=== PATIENT | male | born 1945 | race Caucasian/White ===

== ENCOUNTER → 2018-12-09 | Outpatient (CLI) | payer OTHER ==
[2018-12-09 07:59] LABS: HEMATOCRIT 41.9 % (42.0-52.0); HEMOGLOBIN 14.4 gm/dL (14.0-18.0); MCH 31.7 pg (26.0-34.0); MCHC 34.3 g/dL (28.0-37.0); MCV 92.6 fL (80.0-100.0); RBC 4.52 mil/uL (4.50-6.00); RDW 12.5 % (10.5-14.5); WBC 6.4 thou/uL (4.0-11.0)
[2018-12-09 08:12] LABS: ALBUMIN 4.1 g/dL (3.4-5.0); CREATININE 1.1 mg/dL (0.7-1.3); TOTAL BILIRUBIN 0.5 mg/dL (<0.1-1.0); TOTAL PROTEIN 7.1 g/dL (6.4-8.2)
== END ==
LOC: CAT 07:38
PROVIDERS: Internal Medicine Cardiovascular Disease
DX: I48.91 Unspecified atrial fibrillation (principal); I25.10 Atherosclerotic heart disease of native coronary artery without angina pectoris; R91.8 Other nonspecific abnormal finding of lung field; M47.814 Spondylosis without myelopathy or radiculopathy, thoracic region

== ENCOUNTER 2018-12-17 06:24 | Observation (INO) | payer OTHER ==
[2018-12-17] VITALS (11 sets, daily range): BP systolic 125–156; BP diastolic 69–99
[~2018-12-17] VITALS: Ht 185.4 cm; Wt 106.2 kg
[2018-12-17 07:14] LABS: ABSOLUTE NEUTROPHILS 3.3 thou/uL (1.4-8.2); BASOPHILS 0.6 % (0.0-2.0); EOSINOPHILS 2.9 % (0.0-3.0); HEMATOCRIT 41.3 % (42.0-52.0); HEMOGLOBIN 14.1 gm/dL (14.0-18.0); LYMPHOCYTES 36.9 % (24.0-44.0); MCH 31.9 pg (26.0-34.0); MCHC 34.1 g/dL (28.0-37.0); MCV 93.5 fL (80.0-100.0); MONOCYTES 8.1 % (1.0-8.0); PLATELET COUNT 222 thou/uL (150-400); POLYS 51.5 % (36.0-66.0); RBC 4.42 mil/uL (4.50-6.00); RDW 12.5 % (10.5-14.5); WBC 6.3 thou/uL (4.0-11.0)
[2018-12-17] MEDS ORDERED: LIPITOR10 MG PO (07:21)
[2018-12-17 07:22] LABS: CALCIUM 9.1 mg/dL (8.5-10.1); CREATININE 1.1 mg/dL (0.7-1.3); POTASSIUM 3.5 mmol/L (3.5-5.1)
[2018-12-17] MEDS ORDERED: OMEPRAZOLE40 MG PO (07:22)
[2018-12-17] MEDS ORDERED: TAMBOCOR 100 M100 M1 PO (07:22)
[2018-12-17] MEDS ORDERED: TOPROL XL25 MG PO (07:23)
[2018-12-17] MEDS ORDERED: GLUCOSAMINE &1 EACH PO (07:24)
[2018-12-17 07:25] LABS: PROTIME 10.4 Seconds (9.3-11.4)
[2018-12-17] MEDS ORDERED: ELIQUIS5 MG PO (07:28)
[2018-12-17 07:29] LABS: ALBUMIN 4.1 g/dL (3.4-5.0); TOTAL BILIRUBIN 0.7 mg/dL (<0.1-1.0); TOTAL PROTEIN 7.1 g/dL (6.4-8.2)
--- NOTE | 2018-12-17 18:51 | NUR ---
PT ADMITED FROM CARDIAC CATH. ADMISSION HX AND ASSESSMENT COMPLETED. VSS. RIGHT GROIN INCISION C/D/I. NO HEMATOMA NOTED. TILLEY D/C. PT HAS BEEN ABLE TO VOID. VSS. DENIED HAVING PAIN OR DISCOMFORT. WILL CONTINUE TO MONITOR.
[2018-12-18 00:25] VITALS: BP 129/81
--- NOTE | 2018-12-18 04:32 | NUR ---
ASSUMED PT CARE AT 1900. PT A/OX4, VITAL SIGNS STABLE, ASSESSMENT CHARTED. PT COMPLAINED OF SOME CHEST PAIN (NON-CARDIAC) WITH COUGHING. PAIN MEDICATION GIVEN WHICH SEEMED TO HELP. COUGH DROP GIVEN FOR SORE THROAT WELL. PT RESTED WELL FOR REST OF NIGHT. GROIN SITE CLEAN DRY AND INTACT.
[2018-12-18 05:37] VITALS: BP 132/77
[2018-12-18 07:50] VITALS: BP 144/82
--- NOTE | 2018-12-18 08:01 | P ---
[facility] [place] [address] PROCEDURE REPORT Name: CARLOTTA LICEA Room #: 209-P [facility].#: [id number] Admission: 12/17/18 ������������������ Attend Phys: Rizwan Quintanilla MD Discharge: ������������������ Date of : 49 Report #: [id number] THIS REPORT FOR: //name// CC: Rizwan Quintanilla Physician staff SHELLEY SLOAN PREOPERATIVE DIAGNOSIS: Atrial fibrillation. POSTOPERATIVE DIAGNOSIS: Atrial fibrillation and atrial flutter. HISTORY: The patient is with a history of AFib, who has failed antiarrhythmic drugs and is here for an ablation. PROCEDURES PERFORMED: 1. Atrial fibrillation ablation, CPT code 00979. 2. 3D mapping, CPT code 16365. 3. Intracardiac echo, CPT code 03061. 4. Second pathway ablation for atrial flutter, CPT code 96404. ANESTHESIA: The patient underwent general anesthesia with no anesthesia related complications. DESCRIPTION OF PROCEDURE: The patient underwent informed consent. We discussed the details of the procedure including the risks, which include, but not limited to bleeding, infection, vascular damage, cardiac perforation, stroke and [place]. He understood these risks and is willing to proceed. The patient was brought to the EP laboratory in fasting and sedated state, prepped and draped in a sterile fashion. I obtained access to the right femoral vein x 3, placing an 8, 9 and 7-Icelandic short sheath. Under fluoroscopy, I placed a decapolar catheter easily in the coronary sinus and an ice catheter into the right atrium. Using intracardiac ultrasound, I created a detailed 3D geometry of the left atrium with specific emphasis of the two left and two right pulmonary veins. Of note, his interatrial septum was pretty thick except for very anterior aspect. Next, the patient was systemically heparinized and a transseptal was performed using an SL1 sheath and a [place] needle. The first place I attempted to cross, the needle advanced nicely into the left atrium, but I could not advance the sheath. Therefore, I pulled the SL1 sheath slightly lower and then came on again with my needle and this time, I was able to advance the tip of the dilator into the left atrium and then advanced the wire into the left superior pulmonary vein; however, I could not advance the SL1 sheath into the left atrium, so I removed the SL1 sheath and advanced the cryo-sheath over the wire into the left superior pulmonary vein without any issues. At baseline, the patient was in sinus rhythm with a sinus rate of 1030 milliseconds, [place] interval 175 milliseconds, QRS duration 100 milliseconds, QT interval 430 milliseconds. Of note, while I was in the left atrium, the patient did go into [address] [address] PROCEDURE REPORT Name: CARLOTTA LICEA Room #: 209-P [facility] Jamie VelazquezRHetal#: [id number] Admission: 12/17/18 ������������������ Attend Phys: Rizwan Quintanilla MD Discharge: ������������������ Date of : 47 Report #: [id number] typical atrial flutter with an atrial cycle length of 250 milliseconds proximal and distal activation along the CS catheter and negative sawtooth flutter waves in the inferior leads. This eventually terminated on its own. Next, I placed a Biosense Cantor Lasso catheter in the left atrium and created a detailed voltage map of the left atrium. My transseptal was slightly high and very anterior. This made engagement of the left inferior pulmonary vein, somewhat challenging with the Lasso catheter, but I created a nice voltage map, nonetheless of the 4 veins in the left atrium. Next, I placed the cryoballoon into the left atrium. I started by isolating the left inferior pulmonary vein, first freeze was of 4 minutes' duration, did not result in isolation. Second freeze was performed and I came off after 30 seconds as the balloon was somewhat deep into the vessel. It appeared the vein was now isolated. I then turned my attention to the left superior pulmonary vein. I performed a single 4-minute freeze and this resulted in isolation of the left superior pulmonary vein within 24 seconds. I then turned my attention to the right-sided veins. While isolating the right-sided veins, I performed phrenic nerve pacing from the decapolar catheter placed up in the subclavian vessel. The right superior pulmonary vein underwent a single 4-minute freeze as the vein isolated within 57 seconds. The right inferior pulmonary vein underwent a single 4-minute freeze as this vein isolated within 34 seconds. I then re-interrogated the veins and they all appeared to be isolated. I decided to perform one additional freeze in the left inferior pulmonary vein of 4 minutes duration to ensure that this vein remains isolated. This freeze actually had better attempts and better occlusion based on venography. Next, I removed the cryoballoon from the left atrium and placed the Lasso catheter back and created a voltage map and we had created a wide circumferential ablation of the pulmonary veins. Next, I turned my attention to the patient's atrial flutter. I utilized a RAMP sheath and an 8 mm Biosense Cantor ablation catheter. I performed a total of 2 ablation lines at 70 garza and 60 degrees. Pre-ablation, the transisthmus conduction time was around 65 milliseconds. Post-ablation was 140 milliseconds with activation consistent with bidirectional block. As such, using intracardiac ultrasound, I verified there was no pericardial effusion. The patient then received systemic protamine and once the ACT was within acceptable range, catheters and sheaths were pulled and hemostasis was obtained. The patient awoke neurologically and hemodynamically intact. No complications and no significant bleeding. CONCLUSIONS: 1. Successful AFib ablation with isolation of the pulmonary veins. 2. Successful atrial flutter ablation with evidence of bidirectional block. ��������������������������������������������� <ELECTRONICALLY SIGNED> ���������������������������������������� By: Rizwan Quintanilla MD ��������������������������������������������� 12/18/18 0801 1117 0027 Rizwan Quintanilla MD /nt
[2018-12-18 08:39] VITALS: BP 144/82
--- NOTE | 2018-12-18 09:32 | NUR ---
PT CARE ASSUMED APPROX 0700. PT ALERT AND ORIENTED X4. DENIES PAIN AND SOA. VSS. UP WITH STEADY GAIT. RIGHT GROIN POST CATH SITE C/D/I. AT BEDSIDE. PT DISCHARGING HOME TO SELF CARE AT THIS TIME. DISCHARGE EDUCATION DONE WITH PT AND . BOTH DENY QUESTIONS AND CONCERNS REGARDING DISCHARGE, FORMS, INCISION CARE, F/U APPTS AND ALL OTHER GENERAL POST HOSPITAL CARE. ALL BELONGINGS IN PT POSSESSION. DRUG SAMPLES FOR ELIQUIS IN PT POSSESSION. IV OUT, TELE BOX OFF. HOSPITAL STAFF TO ESCORT PT OUT TIMELY.
== END 2018-12-18 09:38 | disposition home or self-care (01) ==
LOC: CATH → 2N 13:52 → ENTRNSPT 12-18 09:30 → EDTRNSPTSTS 12-18 09:32 → 2N 12-18 09:38
PROVIDERS: ADMIT Internal Medicine Cardiovascular Disease
DX: I48.91 Unspecified atrial fibrillation (principal); I48.92 Unspecified atrial flutter; I10 Essential (primary) hypertension; Z79.82 Long term (current) use of aspirin; Z87.891 Personal history of nicotine dependence
CPT/HCPCS: 65040; 70005

== ENCOUNTER → 2018-12-31 | Outpatient (CLI) | payer OTHER ==
[~2018-12-31] MED LIST: ELIQUIS5 MG PO; GLUCOSAMINE &1 EACH PO; LIPITOR10 MG PO; OMEPRAZOLE40 MG PO; TAMBOCOR 100 M100 M1 PO; TOPROL XL25 MG PO
--- NOTE | 2018-12-31 13:28 | 2DMMODE ---
[facility] Marek [employer] [address] 2 D/M-MODE ECHOCARDIOGRAM Name: CARLOTTA LICEA Room #: REG [facility]#: [id number] Admission: 12/31/18 Attend Phys: Margaux Camargo Discharge: Date of : 49 Report #: [id number] THIS REPORT FOR: //name// APPROVED REPORT Study performed: 12/31/2018 12:35:05 EXAM: Comprehensive 2D, Doppler, and color-flow Echocardiogram Patient Location: Out-Patient Status: routine BSA: 2.28 HR: 65 bpm BP: 132/78 mmHg Rhythm: NSR Other Information Study Quality: Good Indications Post Ablation, Rule out effusion 2D Dimensions IVSd: 12.45 (7-11mm) LVDd: 38.94 mm PWd: 11.87 (7-11mm) LVDs: 24.10 (25-40mm) Pulmonary Valve PV Peak Josias.: 0.81 m/s PV Peak Gr.: 2.65 mmHg Tricuspid Valve TR Peak Josias.: 2.52 m/s TR Peak Gr.: 25.43 mmHg Left Ventricle The left ventricle is normal size. Mild concentric left ventricular hypertrophy. The left ventricular systolic function is normal. The left ventricular ejection fraction is within the normal range. LVEF is 60-65%. Aortic Valve The aortic valve is normal in structure. No aortic regurgitation is present. [facility] [address] [place] [address] 2 D/M-MODE ECHOCARDIOGRAM Name: CARLOTTA LICEA Room #: REG [facility].#: [id number] Admission: 12/31/18 Attend Phys: Margaux Camargo Discharge: Date of : 47 Report #: [id number] Mitral Valve The mitral valve is normal in structure. Trace to mild mitral regurgitation. Tricuspid Valve The tricuspid valve is normal in structure. Mild tricuspid regurgitation. Estimated PAP is 30mmHg. Pulmonic Valve The pulmonary valve is normal in structure. Trace to mild pulmonic regurgitation. Great Vessels IVC is normal in size and collapses >50% with inspiration. Pericardium There is no pericardial effusion. There is no pleural effusion. <Conclusion> The left ventricle is normal size. LVEF is 60-65%. The aortic valve is normal in structure. The mitral valve is normal in structure. Trace to mild mitral regurgitation. The tricuspid valve is normal in structure. Mild tricuspid regurgitation. Estimated PAP is 30mmHg. The pulmonary valve is normal in structure. Trace to mild pulmonic regurgitation. There is no pericardial effusion. <ELECTRONICALLY SIGNED> By: Damien Gordillo MD 12/31/18 1328 1328 1328 Damien Gordillo MD /INF
== END ==
LOC: CV 12:28
DX: I08.8 Other rheumatic multiple valve diseases (principal); I30.9 Acute pericarditis, unspecified; I70.0 Atherosclerosis of aorta

== ENCOUNTER → 2019-07-01 | Outpatient (CLI) | payer OTHER | LOC: SJCVC 14:11 | DX: I48.0 Paroxysmal atrial fibrillation (principal); I10 Essential (primary) hypertension; Z79.899 Other long term (current) drug therapy; Z87.891 Personal history of nicotine dependence ==

== ENCOUNTER → 2019-09-29 | Outpatient (CLI) | payer OTHER | LOC: SJCVC 11:04 | PROVIDERS: ATTEND Internal Medicine Cardiovascular Disease | DX: I48.0 Paroxysmal atrial fibrillation (principal); R00.2 Palpitations; I25.9 Chronic ischemic heart disease, unspecified; Z87.891 Personal history of nicotine dependence; Z79.899 Other long term (current) drug therapy ==

== ENCOUNTER → 2019-10-06 | Outpatient (CLI) | payer OTHER ==
--- NOTE | ~2019-10-06 | P ---
[address] [place] [address] PROCEDURE REPORT Name: SPIKE LICEA Room #: REG [facility]#: [id number] Admission: 10/06/19 Attend Phys: Rizwan Quintanilla MD Discharge: Date of : 47 Report #: [id number] THIS REPORT FOR: cc: LORRIE DALE Luis F. MD ~ CC: Rizwan DALE PROCEDURE: Implantable loop recorder insertion on Mr. Spike Licea. PREOPERATIVE DIAGNOSES: 1. Atrial fibrillation. 2. Palpitations. POSTOPERATIVE DIAGNOSES: 1. Atrial fibrillation. 2. Palpitations. DESCRIPTION OF PROCEDURE: The patient underwent informed consent. He was prepped in a sterile fashion. I injected lidocaine at the incision site. The device was injected under the skin, single layer of suture was delivered and surgical glue was placed on the incision. There were no procedure related complications. New implanted device is MedThe Resumator LINQ, serial # [id number]. CONCLUSIONS: Successful implantation of an implantable loop recorder. By: [id number] [id number] Rizwan Quintanilla MD /nt
[2019-10-06 08:29] VITALS: BP 158/88
== END | disposition home or self-care (01) ==
LOC: CATH 07:10
PROVIDERS: ATTEND Internal Medicine Cardiovascular Disease
DX: I48.91 Unspecified atrial fibrillation (principal); R00.2 Palpitations; Z98.890 Other specified postprocedural states; Z79.899 Other long term (current) drug therapy; Z79.01 Long term (current) use of anticoagulants

== ENCOUNTER → 2019-10-08 | Outpatient (CLI) | payer OTHER | LOC: SJCVCIMAG 09:47 | PROVIDERS: ATTEND Internal Medicine Cardiovascular Disease | DX: R06.09 Other forms of dyspnea (principal); R42 Dizziness and giddiness; R51 Headache; I48.91 Unspecified atrial fibrillation; R06.02 Shortness of breath; Z87.891 Personal history of nicotine dependence; Z79.899 Other long term (current) drug therapy ==

== ENCOUNTER → 2019-12-03 | Outpatient (CLI) | payer OTHER | LOC: SJCVC 13:29 | PROVIDERS: ATTEND Internal Medicine Cardiovascular Disease | DX: I48.92 Unspecified atrial flutter (principal); I48.91 Unspecified atrial fibrillation; I10 Essential (primary) hypertension; Z79.899 Other long term (current) drug therapy; Z87.891 Personal history of nicotine dependence ==

== ENCOUNTER → 2020-01-12 | Outpatient (CLI) | payer OTHER ==
[~2020-01-12] MED LIST changes: +BESYLATE PO; +CENTRUM SILVER1 EAC7 PO; +NORVASC10 MG PO
== END ==
LOC: SJCVC 12:33
PROVIDERS: ATTEND Internal Medicine Cardiovascular Disease
DX: I48.0 Paroxysmal atrial fibrillation (principal); I48.3 Typical atrial flutter; I10 Essential (primary) hypertension; Z87.891 Personal history of nicotine dependence; Z79.899 Other long term (current) drug therapy

== ENCOUNTER → 2020-01-18 | Outpatient (CLI) | payer OTHER | LOC: LAB 12:41 | PROVIDERS: ATTEND Internal Medicine Cardiovascular Disease | DX: Z01.812 Encounter for preprocedural laboratory examination (principal); Z20.828 Contact with and (suspected) exposure to other viral communicable diseases ==

== ENCOUNTER 2020-01-21 06:19 | Outpatient (CLI) | payer OTHER ==
[~2020-01-21] VITALS: Ht 188 cm; Wt 73.0 kg
[2020-01-21] VITALS (12 sets, daily range): BP systolic 144–165; BP diastolic 91–112
[~2020-01-21 06:19] MED LIST changes: -BESYLATE PO; -CENTRUM SILVER1 EAC7 PO; -NORVASC10 MG PO
[2020-01-21] MEDS ORDERED: CENTRUM SILVER1 EAC7 PO (07:25)
[2020-01-21 07:33] LABS: ABSOLUTE NEUTROPHILS 3.2 thou/uL (1.4-8.2); BASOPHILS 0.9 % (0.0-2.0); EOSINOPHILS 3.3 % (0.0-3.0); HEMATOCRIT 40.9 % (42.0-52.0); HEMOGLOBIN 13.7 gm/dL (14.0-18.0); LYMPHOCYTES 36.3 % (24.0-44.0); MCH 30.9 pg (26.0-34.0); MCHC 33.4 g/dL (28.0-37.0); MCV 92.6 fL (80.0-100.0); MONOCYTES 8.7 % (1.0-8.0); PLATELET COUNT 196 thou/uL (150-400); POLYS 50.8 % (36.0-66.0); RBC 4.41 mil/uL (4.50-6.00); RDW 12.7 % (10.5-14.5); WBC 6.3 thou/uL (4.0-11.0)
[2020-01-21] MEDS ORDERED: BESYLATE PO (07:34)
[2020-01-21] MEDS ORDERED: NORVASC10 MG PO (07:44)
[2020-01-21 07:52] LABS: CALCIUM 8.8 mg/dL (8.5-10.1); CREATININE 0.9 mg/dL (0.7-1.3); POTASSIUM 4.1 mmol/L (3.5-5.1)
[2020-01-21 07:57] LABS: TOTAL BILIRUBIN 0.6 mg/dL (0.2-1.0); TOTAL PROTEIN 7.1 g/dL (6.4-8.2)
[2020-01-21 08:00] LABS: APTT 30.2 Seconds (24.5-32.8); PROTIME 10.4 Seconds (9.3-11.4)
--- NOTE | 2020-01-21 13:36 | P ---
[facility] [place] [address] PROCEDURE REPORT Name: CARLOTTA LICEA Room #: 213-P [facility]#: [id number] Admission: 01/21/20 Attend Phys: Rizwan Quintanilla MD Discharge: Date of : 47 Report #: [id number] THIS REPORT FOR: cc: SHELLEY SLOAN Physician not on staff Rizwan Quintanilla MD ~ CC: Rizwan Quintanilla Physician staff SHELLEY SLOAN DATE OF SERVICE: 01/21/2020 PREOPERATIVE DIAGNOSIS: Atrial fibrillation. POSTOPERATIVE DIAGNOSIS: Atrial fibrillation. PROCEDURES PERFORMED: 1. Atrial fibrillation ablation, CPT code 42633. 2. 3D mapping, CPT code 12162. 3. Intracardiac echo, CPT code 17246. 4. Focal ablation, CPT code 20704. HISTORY: The patient is a 74-year-old male with history of paroxysmal AFib, status post ablation back in December of 2018 who has had clinical recurrence and is here for repeat ablation. ANESTHESIA: The patient underwent general anesthesia with no anesthesia related complications. DESCRIPTION OF PROCEDURE: The patient underwent informed consent. We discussed the details of the procedure including the risks, which include but not limited to bleeding, infection, vascular damage, cardiac perforation, stroke and [place]. He understood these risks and is willing to proceed. The patient was brought to EP laboratory in a fasting and sedated state, prepped and draped in a sterile fashion. He was placed under general anesthesia. Next, I obtained access to the right femoral vein x 3, placing a two 8 and a 9-Spanish short sheath. In the left femoral vein, I placed a 7-Spanish short sheath. Next, under fluoroscopy, I placed a decapolar catheter easily in the coronary sinus and ICE catheter into the right atrium. On intracardiac ultrasound, there was evidence of two left and two right pulmonary veins and a 3D geometry was created using FameBitund and this was merged with the patient's prior cardiac CT scan. Next, the patient was systemically heparinized and a transseptal was performed using a [place] needle and a Biosense Cantor SL1 sheath. His transseptal was straightforward. Next, I exchanged the SL1 sheath for an Agilis sheath and the PentaRay catheter was placed into the left atrium. A detailed 3D [facility] [address] [place] [address] PROCEDURE REPORT Name: CARLOTTA LICEA Room #: 213-P [facility] RHONDA Lucero#: [id number] Admission: 01/21/20 Attend Phys: Rizwan Quintanilla MD Discharge: Date of : 47 Report #: [id number] voltage map of the left atrium was created and there was evidence of reconnection of the left inferior pulmonary vein. Although the right inferior pulmonary vein appeared to be isolated, there were some signals along the inferior region. Therefore, I removed the PentaRay and went up with a SmartTouch ThermoCool ablation catheter and I performed ablation along the left-sided veins and I started from the roof and went down until I was to the lower aspect of the left atrium. I then went up and performed additional ablation near the right inferior pulmonary vein and extended this more inferiorly. I then performed ablation and created a line from the right inferior pulmonary vein to the left inferior pulmonary vein. I then extended my lesion set and created a roofline. I then went back and remapped the left atrium and this showed that the left-sided veins and right-sided veins were completely isolated. There was still some conduction along both the roof and the inferior lesion set. Additional ablation was performed at both sites until there was block across the inferior left atrium and the roof lesion set. Multiple remaps were performed to achieve this. After completion of ablation of the left atrium, I went back to the right atrium and I checked to see if there was still bidirectional block from our prior atrial flutter ablation performed last year. The transisthmus conduction time remained at 145 milliseconds with activation sequence consistent with bidirectional block. As such, no additional ablation was required in the right atrium. As such, using intracardiac ultrasound, I verified there was no pericardial effusion. The patient received systemic protamine and once the ACT was within acceptable range, catheters and sheaths were pulled and hemostasis was obtained. The patient awoke neurologically and hemodynamically intact. No complications and no significant bleeding. CONCLUSIONS: 1. Successful re-isolation of the left inferior and right inferior pulmonary veins. 2. Successful creation of a posterior roofline and an inferior line with block across both lesion sets. 3. Evidence of persistent bidirectional block in the right atrium from the prior ablation procedure. <ELECTRONICALLY SIGNED> By: Rizwan Quintanilla MD 01/21/20 1336 1141 1253 Rizwan Quintanilla MD /nt
--- NOTE | 2020-01-21 19:48 | NUR ---
ASSUMED CARE POST CARDIAC ABLATION WITH DR COLBY. 6 HOUR BED REST WITH POST CARDIAC VS PER PROTOCOL. RIGHT GROIN WITH DRY BLOOD AND INTACT. LEFT GROIN C/D/I. NOTIFED DR COLBY REGARDING ELEVATED BP WITH ORDERS RECIEVED. BELEM ZARATE NOTIFED PRIMARY NURSE THAT IF BP ELEVATES ABOVE 160 SBP TO CALL USPS LETTER CARRIER PHYSICAIN. AX4, FROM HOME. DENIES SOB, IVANIA CHEST PAIN. TILLEY TO BE REMOVED AFTER 1830. NSR. ADMISSION COMPLETED. PERSONAL ITEMS AND CALL LIGHT IN REACH.
[2020-01-22 00:13] VITALS: BP 148/98
[2020-01-22 04:45] VITALS: BP 150/92
[2020-01-22] MEDS ORDERED: LISINOPRIL2.5 MG PO (07:43)
[2020-01-22] MEDS ORDERED: ZESTRIL20 MG PO (07:58)
[2020-01-22 08:04] VITALS: BP 165/104
[2020-01-22 09:07] VITALS: BP 165/104
--- NOTE | 2020-01-22 09:19 | NUR ---
BILATERAL GROIN SITES CDI WITH ONLY SMALL AMOUNT OF BLOOD ON RIGHT GROIN SITE WITH NO HEMATOMAS. PT UNDERSTANDS FOLLOW UP ORDER AND SITE CARE. DISCONTINUE IV AND TELE. PT WILL BE DISCHARGED TO HOME VIA PRIVATE VEHICLE.
--- NOTE | 2020-01-22 15:54 | D ---
[facility] [place] [address] DISCHARGE SUMMARY Name: CARLOTTA LICEA Room #: DEP [facility]#: [id number] Admission: 01/21/20 Attend Phys: Rizwan Quintanilla MD Discharge: 01/22/20 Date of : 47 Report #: [id number] THIS REPORT FOR: cc: SHELLEY SLOAN Physician not on staff Rizwan Quintanilla MD ~ THIS REPORT FOR: //name// CC: Rizwan Quintanilla Physician staff SHELLEY SLOAN DATE OF SERVICE: 01/22/2020 PREOPERATIVE DIAGNOSIS: Atrial fibrillation, atrial flutter. PROCEDURES PERFORMED: AFib ablation. HISTORY: The patient is a 74-year-old status post AFib ablation back in 2019, who has had clinical recurrence on his implantable loop recorder despite medication therapy. He was here for repeat ablation where we isolated his right inferior and left inferior pulmonary veins and performed a posterior wall ablation as well. His procedure was straightforward without complications. HOSPITAL COURSE: The patient was monitored in the CCU overnight and did well. He denied any chest pain, shortness of breath, PND or orthopnea. On exam, regular rate and rhythm. Lungs are clear to auscultation. Groin: No significant bruising or hematoma. Telemetry, he remained in sinus rhythm. As such, he was deemed stable for discharge home. His blood pressure has been running slightly high. Therefore, we will add on some lisinopril 20 mg a day in addition to his Norvasc and metoprolol therapy. He will continue with anticoagulation therapy and we will not initiate any antiarrhythmic drugs post-ablation. We will see him back in the office in 3 months. <ELECTRONICALLY SIGNED> By: Rizwan Quintanilla MD 01/22/20 1554 0755 0855 Rizwan Quintanilla MD /nt
== END 2020-01-22 09:59 | disposition home or self-care (01) ==
LOC: CATH 06:19 → 2N 12:29 → CATH 13:11
PROVIDERS: ATTEND Internal Medicine Cardiovascular Disease
DX: I48.91 Unspecified atrial fibrillation (principal); I48.92 Unspecified atrial flutter; I10 Essential (primary) hypertension; E78.5 Hyperlipidemia, unspecified; Z98.890 Other specified postprocedural states; Z79.899 Other long term (current) drug therapy; Z79.01 Long term (current) use of anticoagulants; Z87.891 Personal history of nicotine dependence; Z88.8 Allergy status to other drugs, medicaments and biological substances
CPT/HCPCS: 10797; 62110; 62900; 70005

== ENCOUNTER → 2020-02-18 | Outpatient (CLI) | payer OTHER ==
[~2020-02-18] MED LIST changes: +BESYLATE PO; +CENTRUM SILVER1 EAC7 PO; +LISINOPRIL2.5 MG PO; +NORVASC10 MG PO; +ZESTRIL20 MG PO
== END ==
LOC: SJCVC 13:13 → SJCVCIMAG 13:13
PROVIDERS: ATTEND Internal Medicine Cardiovascular Disease
DX: I08.2 Rheumatic disorders of both aortic and tricuspid valves (principal); I27.20 Pulmonary hypertension, unspecified; I48.91 Unspecified atrial fibrillation; M25.473 Effusion, unspecified ankle; R60.0 Localized edema; I10 Essential (primary) hypertension; Z98.890 Other specified postprocedural states; Z79.899 Other long term (current) drug therapy; Z87.891 Personal history of nicotine dependence

== ENCOUNTER → 2020-03-02 | Outpatient (CLI) | payer OTHER | LOC: SJCVC 13:56 | PROVIDERS: ATTEND Internal Medicine Cardiovascular Disease | DX: R06.02 Shortness of breath (principal); I48.91 Unspecified atrial fibrillation; I10 Essential (primary) hypertension; I48.3 Typical atrial flutter; F17.201 Nicotine dependence, unspecified, in remission; Z79.899 Other long term (current) drug therapy ==

== ENCOUNTER → 2020-04-18 | Outpatient (CLI) | payer OTHER | LOC: RAD 11:54 | PROVIDERS: ATTEND Internal Medicine | DX: R06.00 Dyspnea, unspecified (principal) ==

== ENCOUNTER → 2020-04-19 | Outpatient (CLI) | payer OTHER | LOC: SJCVC 13:30 | PROVIDERS: ATTEND Internal Medicine Cardiovascular Disease | DX: R94.31 Abnormal electrocardiogram [ECG] [EKG] (principal); I48.92 Unspecified atrial flutter; R06.02 Shortness of breath; I48.3 Typical atrial flutter; I11.9 Hypertensive heart disease without heart failure; F17.201 Nicotine dependence, unspecified, in remission; E78.2 Mixed hyperlipidemia; Z98.890 Other specified postprocedural states ==

== ENCOUNTER → 2020-05-19 | Outpatient (CLI) | payer OTHER | LOC: CAT 09:17 | PROVIDERS: ATTEND Internal Medicine | DX: J84.10 Pulmonary fibrosis, unspecified (principal); R91.8 Other nonspecific abnormal finding of lung field; D16.01 Benign neoplasm of scapula and long bones of right upper limb ==

== ENCOUNTER → 2020-05-26 | Outpatient (CLI) | payer OTHER ==
--- NOTE | 2020-06-01 17:54 | SLE ---
[facility] [place] [address] POLYSOMNOGRAPHY STUDY Name: CARLOTTA LICEA Room #: REG [facility]#: [id number] Admission: 05/26/20 Attend Phys: Bryson Prince MD Discharge: Date of : 47 Report #: [id number] THIS REPORT FOR: cc: SHELLEY SLOAN MD Physician not on staff Milton Carter MD ~ DATE OF SERVICE: 05/27/2020 HOME SLEEP STUDY REFERRING PHYSICIAN: Bryson Prince MD The patient is a 74-year-old who weighs 247 pounds with a BMI of 32.6. The patient's [place] score was 9. The patient underwent home sleep study performed at [place]. Total recording time was 583 minutes. During the night study, the patient had 71 obstructive apneas, 7 central apneas, no mixed apneas and 65 hypopneas. The patient's AHI was 15 per hour with a supine AHI of 23 per hour. The patient's flow signal was not best during the night of the study. Nocturnal oximetry study revealed an average oxygen saturation of 91% with lowest of 75%. 201 minutes were spent with oxygen saturation of less than 90% and 12 minutes with saturation of less than 85%. Mean heart rate 79 beats per minute with a maximum of 116 beats per minute. IMPRESSION: 1. Moderate obstructive sleep apnea. Total AHI of 15 per hour with a supine AHI of 23 per hour. 2. Nocturnal hypoxia secondary to obstructive sleep apnea. RECOMMENDATIONS: 1. The patient would benefit from treatment of sleep apnea with CPAP. Alternate treatment option to include use of an oral appliance as recommended by the dentist. 2. Avoid supine sleep. 3. Cautioned regarding driving until symptoms of sleep apnea resolves with the above recommendation. 4. Avoid TEST LAB TECHNICIAN depressants. <ELECTRONICALLY SIGNED> By: Milton Carter MD 06/01/20 1754 01 Milton Carter MD /nt
== END ==
LOC: SLEEPLAB 14:44
PROVIDERS: ATTEND Internal Medicine
DX: G47.33 Obstructive sleep apnea (adult) (pediatric) (principal); G47.34 Idiopathic sleep related nonobstructive alveolar hypoventilation; Z68.32 Body mass index [BMI] 32.0-32.9, adult; Z88.8 Allergy status to other drugs, medicaments and biological substances

== ENCOUNTER → 2020-11-09 | Outpatient (CLI) | payer OTHER | LOC: SJCVC 15:10 | PROVIDERS: ATTEND Internal Medicine Cardiovascular Disease | DX: I48.91 Unspecified atrial fibrillation (principal); I48.3 Typical atrial flutter; I10 Essential (primary) hypertension; E78.2 Mixed hyperlipidemia; J45.909 Unspecified asthma, uncomplicated; G47.33 Obstructive sleep apnea (adult) (pediatric); Z88.8 Allergy status to other drugs, medicaments and biological substances; Z79.899 Other long term (current) drug therapy; Z87.891 Personal history of nicotine dependence; Z82.49 Family history of ischemic heart disease and other diseases of the circulatory system ==

== ENCOUNTER → 2021-05-09 | Outpatient (CLI) | payer OTHER | LOC: SJCVC 12:57 | PROVIDERS: ATTEND Internal Medicine Cardiovascular Disease | DX: I48.91 Unspecified atrial fibrillation (principal); I48.3 Typical atrial flutter; I10 Essential (primary) hypertension; E78.2 Mixed hyperlipidemia; F17.200 Nicotine dependence, unspecified, uncomplicated; Z82.49 Family history of ischemic heart disease and other diseases of the circulatory system; Z88.8 Allergy status to other drugs, medicaments and biological substances; Z79.899 Other long term (current) drug therapy ==

== ENCOUNTER → 2021-05-22 | Outpatient (CLI) | payer OTHER | LOC: CAT | PROVIDERS: ATTEND Internal Medicine | DX: R91.8 Other nonspecific abnormal finding of lung field (principal); M47.819 Spondylosis without myelopathy or radiculopathy, site unspecified; M41.9 Scoliosis, unspecified ==